=== PATIENT | female | born 1960 | race Native Hawaiian/Other Pacific Islander ===

== ENCOUNTER 2020-09-29 11:16 | Observation (INO) | payer OTHER ==
[~2020-09-29] VITALS: Ht 167.6 cm; Wt 71.8 kg
[2020-09-29 12:32] LABS: PLATELET COUNT 176 K/uL (152-353)
[2020-09-29 12:44] VITALS: BP 119/72; TEMP 99.2; Ht 167.6 cm; Wt 71.8 kg
[2020-09-29] MEDS ORDERED: CHOLECALCIFEROL PO (12:51)
[2020-09-29] MEDS ORDERED: ASPIRIN ADULT325 MG PO (12:51)
[2020-09-29] MEDS ORDERED: VIT C/ACEROL500 MG PO (12:52)
[2020-09-29] MEDS ORDERED: ZINC220 MG PO (12:52)
[2020-09-29] MEDS ORDERED: PEPCID40 MG PO (12:52)
[2020-09-29] MEDS ORDERED: GABA400C2 PO (12:53)
[2020-09-29] MEDS ORDERED: ALPR0.5T24 PO (12:53)
[2020-09-29] MEDS ORDERED: SERTRALINE HYD100 MG PO (12:53)
[2020-09-29] MEDS ORDERED: TRAMADOL HYDROC50 MG PO (12:54)
[2020-09-29 12:57] LABS: POTASSIUM 3.7 mmol/L (3.6-5.2)
[2020-09-29 16:00] VITALS: BP 111/72; TEMP 98.4
[2020-09-29 20:00] VITALS: BP 101/64; TEMP 99.2
[2020-09-30] VITALS: BP 113/68; TEMP 98
[2020-09-30 04:00] VITALS: BP 133/85; TEMP 97.6
[2020-09-30 05:20] LABS: PLATELET COUNT 176 K/uL (152-353)
[2020-09-30 05:31] LABS: POTASSIUM 3.8 mmol/L (3.6-5.2)
[2020-09-30 08:00] VITALS: BP 171/83; TEMP 97.7
== END 2020-09-30 12:30 | disposition home or self-care (01) ==
LOC: MED/SURG 11:16
PROVIDERS: ADMIT Family Medicine
DX: U07.1 COVID-19 (principal); J18.8 Other pneumonia, unspecified organism; I10 Essential (primary) hypertension; F41.8 Other specified anxiety disorders; E11.9 Type 2 diabetes mellitus without complications; D72.818 Other decreased white blood cell count; R06.09 Other forms of dyspnea; R00.2 Palpitations; E46 Unspecified protein-calorie malnutrition; J44.9 Chronic obstructive pulmonary disease, unspecified
CPT/HCPCS: 36415; 80053; 82728; 83735; 84100; 85027; 85379; 86140; 87040; 94667; 94668; 94760; 96365; 96366; 96367; 96372; 96375; 99220; G0378; G0379; J0456; J0696; J1100; J1650